=== PATIENT | male | born 1955 | race Caucasian/White ===

== ENCOUNTER 2020-06-12 11:08 | Outpatient (CLI) | payer MEDICARE, SELFPAY ==
--- NOTE | ~2020-06-12 | XR_ITS ---
XR knee RT 3V DATE: 06/12/2020 11:35 INDICATION: Right knee pain through patella. No known injury. TECHNIQUE: 3 views COMPARISON: None FINDINGS: There is evidence of mild suprapatellar knee joint effusion. There is slight periarticular spurring of the patella. Knee joint spaces are preserved. No radiopaque intra-articular loose body or chondrocalcinosis. No fracture or dislocation, periosteal reaction or bone destruction. IMPRESSION: Mild suprapatellar knee joint effusion is suggested Minimal periarticular spurring of the patella Reviewed, dictated and finalized at location B.
== END 2020-06-12 11:09 | disposition home or self-care (01) ==
PROVIDERS: PCP Internal Medicine; Visit Provider Internal Medicine
DX: M25.561 Pain in right knee (principal)
CPT/HCPCS: 73562